=== PATIENT | female | born 1990 | race Caucasian/White ===

== ENCOUNTER 2020-02-02 20:37 | Emergency (ER) | payer SELFPAY ==
[2020-02-02] MEDS ORDERED: Acetaminophen 500 MG TAB ONE (20:54)
[2020-02-02] MEDS ORDERED: Ketorolac Tromethamine 30 MG/ML VIAL ONE (20:54)
[2020-02-02] MEDS ORDERED: HYDROcodone/Acetaminophen 5/325 mg Tablet ONE (20:54)
== END 2020-02-02 21:00 | disposition home or self-care (01) ==
LOC: NAV ERS 20:37
DX: T21.02XA Burn of unspecified degree of abdominal wall, initial encounter (principal); T23.002A Burn of unspecified degree of left hand, unspecified site, initial encounter; X13.1XXA Other contact with steam and other hot vapors, initial encounter; Y93.G3 Activity, cooking and baking
CPT/HCPCS: 96372; 99283; J1885

== ENCOUNTER 2021-05-23 07:49 | Emergency (ER) | payer SELFPAY | END 2021-05-23 08:20 | disposition home or self-care (01) | LOC: NAV ERS 07:49 | DX: H60.91 Unspecified otitis externa, right ear (principal) | CPT/HCPCS: 99283 ==

== ENCOUNTER 2024-05-12 01:47 | Emergency (ER) | payer BC, SELFPAY ==
[2024-05-12] MEDS ORDERED: fentaNYL 50 mcg/mL 1 mL Vial ONE (02:09)
[2024-05-12] MEDS ORDERED: Ondansetron PF 4 MG/2 ML Vial ONE (02:09)
[2024-05-12 02:12] LABS: #Basophils 0.1 thou/uL (0.0-0.2); #Eosinophils 0.2 thou/uL (0.0-0.7); #Monocytes 0.8 thou/uL (0.11-0.59); #Neutrophils 4.2 thou/uL (1.40-6.50); %Basophils 1.3 % (0.0-1.0); %Eosinophils 2.3 % (0.0-10.0); %Lymphocytes 35.5 % (21.0-51.0); %Monocytes 9.9 % (0.0-10.0); Hematocrit 37.3 % (36.0-47.0); Hemoglobin 12.7 g/dL (12.0-16.0); Mean Corpuscular Hemoglobin 30.5 pg (27.0-31.0); Mean Corpuscular Volume 89.8 fl (78.0-98.0); Mean Platelet Volume 6.4 fL (7.4-10.4); Platelet Count 313 10x3/uL (130-400); RBC Distribution Width 10.8 % (11.5-14.5); Red Blood Cell (RBC) Count 4.15 mill/uL (4.20-5.40); White Blood Cell (WBC) Count 8.3 10x3/uL (4.8-10.8)
[2024-05-12 02:15] LABS: Bilirubin Small (Negative); Blood, Urine Moderate (Negative); Clarity Clear (Clear); Glucose, Urine (Dipstick) 100 mg/dL (Negative); Ketone, Urine Trace mg/dL (Negative); Leukocyte Negative (Negative); Nitrite Negative (Negative); Protein, Urine (Dipstick) 30 mg/dL (Neg-Trace); Specific Gravity, Urine 1.025 (1.005-1.030); Urobilinogen 0.2 mg/dL (Less than 2)
[2024-05-12 02:19] LABS: BHCG - Serum POSITIVE (NEGATIVE)
[2024-05-12 02:19] LABS: Bacteria/HPF 1+ HPF (None Seen); CAUTI Indications for Culture Pelvic or flank pain; RBC/HPF 21-50 HPF (0-3); WBC/HPF 0-3 HPF (0-3)
[2024-05-12 02:20] LABS: Urine Culture Reflex No No
[2024-05-12 02:20] LABS: Pregs Control Bar Appear? YES (CONTROL BAR)
[2024-05-12 02:30] LABS: Troponin I Less than 0.010 ng/mL (< 0.028)
[2024-05-12 02:35] LABS: ALT (SGPT) 17 U/L (8-55); AST (SGOT) 18 U/L (5-34); Albumin 3.5 g/dL (3.5-5.0); Alkaline Phosphatase 42 U/L (40-110); Anion Gap 16 mmol/L (10-20); BUN (Urea Nitrogen) 15 mg/dL (7.0-18.7); Bilirubin, Total 0.3 mg/dL (0.2-1.2); Calc. Creatinine Clearance 0 mL/min (70-130); Calcium 9.3 mg/dL (7.8-10.44); Carbon Dioxide 21 mmol/L (22-29); Chloride 104 mmol/L (98-107); Estimated GFR 100; Globulin 4.1 g/dL (2.4-3.5); Glucose 99 mg/dL (70-105); Lipase 62 U/L (8-78); Magnesium 1.9 mg/dL (1.6-2.6); Potassium 4.4 mmol/L (3.5-5.1); Protein, Total 7.6 g/dL (6.0-8.3); Sodium 137 mmol/L (136-145)
== END 2024-05-12 03:02 | disposition short-term general hospital (02) ==
LOC: NAV ERS 01:47
DX: R10.12 Left upper quadrant pain (principal); Z33.1 Pregnant state, incidental
CPT/HCPCS: 80053; 81001; 83690; 83735; 84484; 84702; 84703; 85025; 93005; 96374; 96375; J2405; J3010